=== PATIENT | female | born 1945 | race Caucasian/White ===

== ENCOUNTER 2020-09-08 08:49 | Outpatient (REF) | payer MEDICARE, SELFPAY ==
[2020-09-08 11:32] LABS: Hematocrit 46.7 % (37-47); Hemoglobin 15.5 g/dl (12.0-16.0); Mean Corpuscular HGB Conc 33.2 g/dl (31.0-35.0); Mean Corpuscular Hemoglobin 30.1 pg (27.0-33.0); Mean Corpuscular Volume 90.7 fL (80-98); Mean Platelet Volume 10.4 fL (9.4-12.3); Platelet Count 177 X10*3/uL (160-400); Red Blood Count 5.15 X10*6/uL (4.20-5.50); Red Cell Distribution Width 13.3 % (11.0-16.0); White Blood Count 8.3 X10*3/uL (4.8-10.8)
[2020-09-08 11:36] LABS: Alanine Aminotransferase 24 U/L (0-31); Albumin Level 4.2 g/dL (3.5-5.0); Alkaline Phosphatase 54 U/L (39-117); Anion Gap 15 (12-20); Aspartate Amino Transferase 25 U/L (5-31); Bilirubin Total 1.1 mg/dL (0.0-1.0); Blood Urea Nitrogen 18 mg/dL (9-16); Calcium 9.2 mg/dL (8.4-10.2); Carbon Dioxide 29 mmol/L (22-29); Chloride 100 mmol/L (96-108); Cholesterol 187 mg/dL; Estimated Glomerular Filt Rate > 60; Glucose Fasting 127 mg/dL (60-99); HDL Cholesterol 56 mg/dL; LDL Cholesterol Calculated 111 mg/dl; Potassium 3.6 mmol/l (3.3-5.1); Sodium 140 mmol/L (135-145); Total Protein 7.3 g/dL (6.5-8.0); Triglycerides 102 mg/dL
[2020-09-08 11:52] LABS: Estimated Average Glucose 128 mg/dL; Hemoglobin A1c % 6.1 %
[2020-09-08 11:58] LABS: Thyroid Stimulating Hormone 2.68 uIU/mL (0.32-4.0)
[2020-09-08 12:42] LABS: Creatinine Urine 108.23 mg/dL; Microalbum/Creatinine Ratio Ur 19.4 ug/mg cr
== END 2020-09-08 08:50 | disposition home or self-care (01) ==
LOC: HO.HMGCLDS 08:49
PROVIDERS: PCP Internal Medicine; Visit Provider Internal Medicine
DX: J44.9 Chronic obstructive pulmonary disease, unspecified (principal); I10 Essential (primary) hypertension; E11.9 Type 2 diabetes mellitus without complications; I51.7 Cardiomegaly; E66.9 Obesity, unspecified
CPT/HCPCS: 36415; 80053; 80061; 82043; 83036; 84443; 85027

== ENCOUNTER 2022-02-24 08:34 | Inpatient (IN) | payer MEDICARE, SELFPAY ==
[2022-02-24] VITALS (10 sets, daily range): BP systolic 85–101; BP diastolic 30–52; PULSE 67–92; RESP 16–24; TEMP 36.8–37.3; O2SAT 92–96; BMI 36.9
--- NOTE | ~2022-02-24 | CT_ITS ---
EXAMINATION: CT ABDOMEN AND PELVIS WITHOUT CONTRAST CLINICAL INFORMATION: Acute kidney injury COMPARISON: Ultrasound abdomen 12/08/2015 TECHNIQUE: Multidetector volumetric imaging was performed from the superior aspect of the liver through the pubic symphysis. Sagittal and coronal reformatted images were obtained on the technologist's workstation. This CT examination was performed using dose optimization techniques as appropriate, variously including the following: *Automated exposure control *Adjustment of mA and/or kV according to patient size (this includes techniques or standardized protocols for targeted exams where dose is matched to indication/reason for exam; i.e. extremities or head) *Use of iterative reconstruction technique DLP: 1242 mGy-cm FINDINGS: LUNG BASES: Focus of groundglass and airspace opacity in the left lower lobe, could be related to infectious or inflammatory etiologies. LIVER, GALLBLADDER, AND BILIARY TREE: Hepatomegaly, right lobe spanning 20 cm craniocaudal. No focal lesion seen. No intrahepatic biliary duct dilatation. Status postcholecystectomy. The CBD caliber is within normal limits, status postcholecystectomy. PANCREAS: Unremarkable. No acute inflammatory changes seen. SPLEEN: Enlarged measuring 14.9 cm AP. ADRENAL GLANDS: Unremarkable. KIDNEYS AND URETERS: Mild bilateral perinephric stranding. Punctate calcification in the left renal upper pole calyceal region, could represent a small calculus. No ureteral calculi. No hydronephrosis. No suspicious lesions identified in this noncontrast study. BLADDER: Underdistended without gross abnormality. GASTROINTESTINAL TRACT: Scattered colonic diverticuli. No evidence of diverticulitis. No colonic wall thickening or pericolonic inflammatory changes. Stomach and small bowel are nondistended. The appendix is not visualized. ABDOMINAL WALL: No significant hernia is appreciated. LYMPH NODES: No adenopathy is identified in the abdomen or pelvis. VASCULAR: Normal caliber aorta with atherosclerotic calcification. PELVIC VISCERA: Within normal limits for CT. OSSEOUS STRUCTURES: Multilevel thoracolumbar spondylosis. No acute osseous abnormality seen. CT/CT abdomen pelvis wo con IMPRESSION: 1. Focus of groundglass airspace opacity in the left lower lobe. This could reflect infectious/ inflammatory process. 2. Hepatomegaly. No focal liver lesion seen. Splenomegaly. 3. Status postcholecystectomy. 4. Mild bilateral perinephric stranding. Punctate nonobstructing calculus in the left renal upper pole calyx. No hydronephrosis. 5. Additional findings and details as above.
--- NOTE | ~2022-02-24 | XR_ITS ---
EXAMINATION: XR CHEST CLINICAL INFORMATION: Cough COMPARISON: 06/21/2020 TECHNIQUE: 2 views of the chest were obtained. FINDINGS: Mild patchy interstitial prominence noted definitely improved from the prior exam. Heart and pulmonary vessels are normal. No pleural effusion. XR/XR chest 2V IMPRESSION: Apparent chronic change with no active disease.
--- NOTE | ~2022-02-24 | NM_ITS ---
EXAMINATION: NM LUNG IMAGE PERFUSION CLINICAL INFORMATION: History of COPD, ALKA, pneumonia and LVH. COMPARISON: None TECHNIQUE: Following intravenous administration of 2.8 mCi of 90 9M technetium and a 8, imaging of both lungs were obtained in multiple projections. Ventilation study was not performed. FINDINGS: On perfusion imaging there is normal flow seen to all segments of the lungs without any subsegmental or segmental defect. Ventilation study was not performed NM/SC pul perfusion IMPRESSION: Normal perfusion seen to all segments of both lungs. No PE suspected.
[2022-02-24 10:00] LABS: Hemoglobin 14.7 g/dl (12.0-16.0); Mean Corpuscular HGB Conc 33.4 g/dl (31.0-35.0); Mean Corpuscular Hemoglobin 29.7 pg (27.0-33.0); Mean Corpuscular Volume 88.9 fL (80.0-98.0); Mean Platelet Volume 9.5 fL (9.4-12.3); Platelet Count 114 X10*3/uL (160-400); Red Blood Count 4.95 X10*6/uL (4.20-5.50); Red Cell Distribution Width 12.8 % (11.0-16.0); White Blood Count 7.1 X10*3/uL (4.8-10.8)
[2022-02-24 10:03] LABS: Alanine Aminotransferase 14 U/L (0-31); Albumin Level 3.3 g/dL (3.5-5.0); Alkaline Phosphatase 45 U/L (39-117); Anion Gap 14 (12-20); Aspartate Amino Transferase 15 U/L (5-31); Blood Urea Nitrogen 22 mg/dL (9-16); Calcium 8.6 mg/dL (8.4-10.2); Carbon Dioxide 24 mmol/L (22-29); Chloride 97 mmol/L (96-108); Creatinine Clr Calc Pharmacy 36.1; Estimated Glomerular Filt Rate 30; Glucose Random 161 mg/dL (60-115); Sodium 131 mmol/L (135-145); Total Protein 6.3 g/dL (6.5-8.0)
[2022-02-24 10:07] LABS: Lactic Acid 2.9 mmol/L (0.5-2.0)
[2022-02-24] MEDS: 0.9 % Sodium Chloride 1,000 ML 999 ML IVCONT ×3 (10:11→11:44)
[2022-02-24 10:14] LABS: IDNOW Serial# 9DD0AD1C; Influenza A Negative (Negative); Influenza B2 Negative (Negative)
--- NOTE | 2022-02-24 10:14 | ED.URI ---
HPI - URI/Sore Throat General Chief Complaint: General Medical Stated Complaint: chill, weakness Time Seen by Provider: 02/24/22 09:43 Source: patient and family (Daughter at bedside) Mode of arrival: ambulatory Limitations: no limitations History of Present Illness HPI Narrative: 76-year-old female with a past medical history of type 2 diabetes, HTN, aortic stenosis, LVH, COPD, osteoarthritis of the knees and obesity who reports she smokes 1-2 packs of cigarettes daily for many years presenting to the ED with complaints of chills, fatigue, malaise, productive cough with wheezing use her albuterol inhaler with little to no symptomatic relief. Reports that she was recently seen at the urgent care on 02/16/2022 and diagnosed with pneumonia sent home with [facility] reports that she was taking as prescribed although she might have missed 1 or 2 tablets. She reports she was feeling better for a few days while taking the antibiotics up until 2-3 days ago were her symptoms worsened. She reports she has not been taking her metformin as well due to she has not been feeling well. She reports she is vaccinated to COVID. She reports that she has not had any fevers she has been checking and was around 98.6 temporally. She denies recent travel or sick contacts that she is aware of. She denies any dizziness, headaches, changes in vision, neck pain/stiffness, trouble swallowing or breathing, chest pain or shortness of breath, dyspnea on exertion, orthopnea, palpitations, paresthesias, nausea/vomiting/diarrhea constipation, black or bloody stools, dysuria, hematuria, abnormal vaginal discharge, lower extremity edema or calf tenderness or any other symptoms complaints or concerns at this time. MD elicited complaint: cough Pertinent past history: COPD and other Onset (ago): day(s) (Was feeling better although worse in the past 2-3 days) Consistency: constant and progressively worsening Severity: moderate Able to tolerate fluids by mouth: Yes Exacerbating factors: nothing Relieving factors: nothing Associated symptoms: chills, myalgias and cough Treatments prior to arrival: none Related Data Previous Rx's Medication Instructions Recorded blood-glucose meter #1 ea 09/07/20 tiotropium bromide 2.5 2 puff INHALATION BEDTIME #4 g 09/07/20 mcg/actuation mist for inhalation (Spiriva Respimat) varenicline 0.5 mg (11)-1 mg (42) See Rx Instructions PO PER PKG DIR 09/07/20 tablets in a dose pack (Chantix #53 ea Starting Month Box) varenicline 1 mg tablet (Chantix 1 mg PO BID #56 tab 09/07/20 Continuing Month Box) nicotine 14 mg/24 hr daily 1 patch TRANSDERMAL DAILY #28 ea 10/05/20 transdermal patch blood sugar diagnostic (FreeStyle #100 ea 11/03/20 Lite Strips) blood-glucose meter (FreeStyle #1 ea 11/04/20 Lite Meter) olmesartan 20 mg tablet 20 mg PO DAILY #90 tab 12/06/20 albuterol sulfate 90 mcg/actuation 2 puff INHALATION QID PRN #18 g 08/13/21 aerosol inhaler (ProAir HFA) metformin 500 mg tablet 500 mg PO BID #180 tab 11/05/21 Allergies Allergy/AdvReac Type Severity Reaction Status Date / Time No Known Allergies Allergy Verified 02/24/22 08:45 [No Known Allergies*] Review of Systems Review of Systems: Constitutional : + chills/fatigue/malaise, No Weight loss, No Fever, No Night Sweats ENT/Mouth : No Hearing loss, No Ear Pain, No Nasal Congestion, No Sinus Pain, No Hoarseness, No sore throat, No Rhinorrhea, No Swallowing Difficulty Eyes: No Eye Pain, No Swelling, No Redness, No Foreign Body, No Discharge, No Vision Changes Cardiovascular : No Chest Pain, No SOB, No Dyspnea on Exertion, No Orthopnea, No Edema, No Palpitations Respiratory : + Cough, + Sputum, + Wheezing, No Smoke Exposure, No Dyspnea Gastrointestinal : No Nausea, No Vomiting, No Diarrhea, No Constipation, No abdominal Pain, No Hematochezia, No Melena Genitourinary : no irregular bleeding, No Dysuria, No Urinary Frequency, No Hematuria, No Urinary Incontinence, No Urgency, No Flank Pain, No Urinary Flow Changes, No Hesitancy Musculoskeletal : No joint pain, + Myalgias, No Joint Swelling Skin : No Skin Lesions, No rash Neuro : No Weakness, No Numbness, No Paresthesias, No Loss of Consciousness, No Dizziness, No Headache Psych : No Anxiety/Panic, No Depression, No SI/HI/AH/VH, No Social Issues, Heme/Lymph: No Bruising, No Bleeding,No Lymphadenopathy Endocrine : No Polyuria, No Polydipsia, No Temperature Intolerance Yes all other systems are reviewed and are negative COUNTS INCLUDE 234 BEDS AT THE [facility] Past Medical History Attestation statement: The following information was validated with the patient. Medical History Aortic stenosis Colonoscopy refused COPD (chronic obstructive pulmonary disease) Hypertension LVH (left ventricular hypertrophy) Mammogram declined OA (osteoarthritis) of knee Obesity Osteoarthritis of knees, bilateral Pneumonia Tobacco dependence Type 2 diabetes mellitus Surgical History Hx of cholecystectomy Family History Family History Father No problems noted. Mother No problems noted. Maternal Grandmother No problems noted. Maternal Grandfather No problems noted. Paternal Grandfather No problems noted. Paternal Grandmother Type 2 diabetes mellitus Social History Social History Patient Tobacco Use Status: Current everyday Tobacco user Smoked in Last 30 Days: Yes Use of substances other than those prescribed or required for medical reasons: No Advance Directives: No Advance Directives Information Provided: No Physical Exam Vital Signs: Vital Signs: Last Vital Signs Temp 98.2 F 02/24/22 10:32 Pulse 72 02/24/22 16:52 Resp 20 02/24/22 16:52 BP 101/50 L 02/24/22 16:52 Pulse Ox 96 02/24/22 16:52 BMI result Body Mass Index 36.9 vital signs have been reviewed as normal and appeared to be correct. Blood pressure 85/30. Heart rate 92. Respiration rate 22. Temperature 99.2. Oxygen saturation normal. Appearance: Alert. Oriented X3. No acute distress. Head: Normal external exam. Normocephalic. Atraumatic. Eyes: PERRLA. EOMI. Conjunctiva and sclera normal. Eyelids normal. ENT: EAC normal. TM's Normal. Patient noted to have some mild thrush in the oropharynx. The rest of the soft and hard palate are within normal limits. The rest of the pharynx is normal. Uvula midline. Moist mucous membranes. No lesions/ulcerations or masses noted on the tongue. Normal voice. No trismus noted. No drooling noted. No muffled voice noted. Neck: Normal inspection. Neck supple. FROM. No adenopathy. Thyroid Normal. No tracheal deviation noted. No crepitus is noted. No meningeal signs. No neck mass noted. No signs of trauma noted. CVS: Normal heart rate and rhythm. Heart sound normal. Pulses normal throughout. No murmurs/rales/gallops. Respiratory: No respiratory distress. Painless inspiration. Breath sounds normal. No wheezes/rales/rhonchi noted. Chest nontender. No crepitus is noted. No accessory muscle usage noted or decreased air movement noted. No signs of trauma. Abdomen: Soft and nontender. Bowel sounds normal in all 4 quadrants. No distention noted. No organomegaly noted. No visible injury noted. Back: No CVA tenderness. Full range of motion noted. Nontender. No signs of trauma. Patient neuro intact bilaterally and distally on all 4 extremities. Patient's reflexes intact bilaterally and distally on all 4 extremities. No rashes/lesion/induration/fluctuance or signs of infection noted. Skin: Skin warm and dry. Normal skin color. Normal skin turgor. No rashes/lesions/lacerations noted. Extremities: No lower extremity edema. No calf tenderness is noted. Extremities exhibit normal range of motion and nontender. Neuro: Oriented X 3. No motor deficit. No sensory deficit. Reflexes normal. Normal steady gait. No focal neuro deficits noted. CN's II-XII intact bilaterally? Vascular: + radial pulses/+ 2 distal pedal pulses/+2 dorsalis pedis b/l. Normal cap refill. No cyanosis noted to upper extremity nails and lower extremity toes nails. Course Course Course Narrative: 9:50am - 76-year-old female with a past medical history of type 2 diabetes, HTN, aortic stenosis, LVH, COPD, osteoarthritis of the knees and obesity who reports she smokes 1-2 packs of cigarettes daily for many years presenting to the ED with complaints of chills, fatigue, malaise, productive cough with wheezing use her albuterol inhaler with little to no symptomatic relief. Reports that she was recently seen at the urgent care on 02/16/2022 and diagnosed with pneumonia sent home with [facility] reports that she was taking as prescribed although she might have missed 1 or 2 tablets. She reports she was feeling better for a few days while taking the antibiotics up until 2-3 days ago were her symptoms worsened. She reports she has not been taking her metformin as well due to she has not been feeling well. She reports she is vaccinated to COVID. Patient had labs, blood cultures and lactic acid and a L of IV fluids running when I went into the room. Plan: Therefore at this time will obtain a chest x-ray, provide 1 g of IV Rocephin along with 975 mg of Tylenol and oral nystatin for the patient's oral thrush along with 125 mg of Solu-Medrol as patient does have some decreased breath sounds although no wheezing noted at this time and a breathing treatment of albuterol and re-evaluate. Reevaluation(s) Reevaluation #1: - labs reviewed patient platelet count 114. Sodium 131. BUN/creatinine 22/1.66. Random glucose 161. Hemoglobin A1c 2.9. Total protein 6.3. Albumin 3.3. Otherwise all other labs are within normal limits. - patient negative for influenza and COVID. - chest x-ray negative for any acute processes. - lactic acid 2.9 although this is most likely related to the patient's ALKA not sepsis. - at this time I ordered a total of 2 L of fluid due to the patient's ALKA. Will recheck the patient's BMP if her ALKA and hypo natremia has improved patient will be discharged with symptomatic treatment. Patient understands agrees with this plan. I did offer case management although patient reports that she feels that she can take care of herself at home and does not want to go short-term rehab. Time: 10:00 Reevaluation #2: - repeat chemistry revealed a sodium of 132. And BUN and creatinine is now worsened at 23/1.75. Therefore going to discuss this case with Nephrology. Still awaiting a UA therefore will bladder scan at this time. Will also obtain a CT scan abdomen pelvis without IV contrast to evaluate for possible obstructive process. Patient understands agrees with this plan. Time: 14:35 Reevaluation #3: - D-dimer at 344 and was ordered earlier the patient's blood pressure was low, to kidney a and the patient's cough; although she denied any chest pain or shortness of breath. She does not have any lower extremity edema or calf tenderness - Although due to D-dimer being elevated will order a V/Q scan due to we are currently on a IV contrast shortage - CT scan abdomen pelvis without IV contrast revealed ground-glass airspace opacities in the left lower lobe which could represent infectious versus inflammatory. Hepatomegaly. Mild bilateral perinephric stranding with nonobstructive calculus in the left renal upper pole otherwise no hydronephrosis or any other acute processes - If V/Q scan negative patient can be admitted for ALKA/COPD with acute exacerbation/pneumonia with hyponatremia and hypotension and candidiasis of mouth. - Sign-out to SHIRIN James pending V/Q scan. Time: 18:21 MDM - URI/Sore Throat Medical Records Attestation: I reviewed the patient's medical records. Lab Data Attestation: I reviewed the patient's lab results. Result diagrams: 02/24/22 09:36 02/24/22 13:39 Labs: Lab Results 02/24/22 02/24/22 02/24/22 Range/Units 09:36 09:36 09:36 WBC 7.1 (4.8-10.8) X10*3/uL RBC 4.95 (4.20-5.50) X10*6/uL Hgb 14.7 (12.0-16.0) g/dl Hct 44.0 (37.0-47.0) % MCV 88.9 (80.0-98.0) fL MCH 29.7 (27.0-33.0) pg MCHC 33.4 (31.0-35.0) g/dl RDW 12.8 (11.0-16.0) % Plt Count 114 L (160-400) X10*3/uL MPV 9.5 (9.4-12.3) fL Immature Gran % (Auto) Cancelled Neut % (Auto) Cancelled Lymph % (Auto) Cancelled [place] % (Auto) Cancelled Eos % (Auto) Cancelled Baso % (Auto) Cancelled Lymph # (Auto) Cancelled [place] # (Auto) Cancelled Eos # (Auto) Cancelled Baso # (Auto) Cancelled Abs Immat Gran (auto) Cancelled Absolute Neuts (auto) Cancelled Absolute Nucleated RBC 0.000 (0.0-0.012) X10*3/uL Nucleated RBC % (auto) 0.0 (0.0-0.2) /100WBC Neutrophils % (Manual) 66 (45-73) % Band Neutrophils % 15 H (3-5) % Lymphocytes % (Manual) 8 L (20-40) % Monocytes % (Manual) 5 (2-11) % Eosinophils % (Manual) 5 H (0-4) % Metamyelocytes % 1 % Abs Neuts (Manual) 5.8 (2.0-8.3) X10*3/uL Lymphocytes # (Manual) 0.6 L (1.2-4.9) X10*3/uL Monocytes # (Manual) 0.4 (0.1-1.2) X10*3/uL Eosinophils # (Manual) 0.4 (0.0-0.4) X10*3/uL Metamyelocytes # 0.1 X10*3/uL Toxic Vacuolation PRESENT Platelet Estimate DECREASED (NORMAL) Plt Morphology Comment NORMAL RBC Morphology NORMAL PT (9.9-13.0) SEC INR (0.9-1.1) D-Dimer High Sensitivty NG/ML Sodium 131 L (135-145) mmol/L Potassium 4.0 (3.3-5.1) mmol/L Chloride 97 (96-108) mmol/L Carbon Dioxide 24 (22-29) mmol/L Anion Gap 14 (12-20) BUN 22 H (9-16) mg/dL Creatinine 1.66 H (0.5-1.4) mg/dL Estim Creat Clear Calc 36.1 Estimated GFR 30 Random Glucose 161 H (60-115) mg/dL Lactic Acid 2.9 H* (0.5-2.0) mmol/L Lactic Acid F/U @ 2Hr (0.5-2.0) mmol/L Calcium 8.6 D (8.4-10.2) mg/dL Total Bilirubin 1.0 (0.0-1.0) mg/dL Direct Bilirubin 0.5 (0.0-0.5) mg/dL AST 15 (5-31) U/L ALT 14 (0-31) U/L Alkaline Phosphatase 45 (39-117) U/L Troponin I High Sens (<3.5-17.0) ng/L B-Natriuretic Peptide (<100) pg/mL Total Protein 6.3 L (6.5-8.0) g/dL Albumin 3.3 L D (3.5-5.0) g/dL Urine Color Urine Appearance Urine pH (5.0-8.0) Ur Specific [place] (1.005-1.025) Urine Protein (NEG-TRACE) MG/DL Urine Glucose (UA) (NEG) MG/DL Urine Ketones (NEG) MG/DL Urine Blood (NEG) Urine Nitrite (NEG) Ur Leukocyte Esterase (NEG) COVID-19 (SHRUTI) (Negative) COVID-19 Clin Com Influenza Type A (GEOVANNA) (Negative) Influenza Type B (GEOVANNA) (Negative) Influenza A & B Note 02/24/22 02/24/22 02/24/22 Range/Units 09:36 09:39 09:39 WBC (4.8-10.8) X10*3/uL RBC (4.20-5.50) X10*6/uL Hgb (12.0-16.0) g/dl Hct (37.0-47.0) % MCV (80.0-98.0) fL MCH (27.0-33.0) pg MCHC (31.0-35.0) g/dl RDW (11.0-16.0) % Plt Count (160-400) X10*3/uL MPV (9.4-12.3) fL Immature Gran % (Auto) Neut % (Auto) Lymph % (Auto) [place] % (Auto) Eos % (Auto) Baso % (Auto) Lymph # (Auto) [place] # (Auto) Eos # (Auto) Baso # (Auto) Abs Immat Gran (auto) Absolute Neuts (auto) Absolute Nucleated RBC (0.0-0.012) X10*3/uL Nucleated RBC % (auto) (0.0-0.2) /100WBC Neutrophils % (Manual) (45-73) % Band Neutrophils % (3-5) % Lymphocytes % (Manual) (20-40) % Monocytes % (Manual) (2-11) % Eosinophils % (Manual) (0-4) % Metamyelocytes % % Abs Neuts (Manual) (2.0-8.3) X10*3/uL Lymphocytes # (Manual) (1.2-4.9) X10*3/uL Monocytes # (Manual) (0.1-1.2) X10*3/uL Eosinophils # (Manual) (0.0-0.4) X10*3/uL Metamyelocytes # X10*3/uL Toxic Vacuolation Platelet Estimate (NORMAL) Plt Morphology Comment RBC Morphology PT (9.9-13.0) SEC INR (0.9-1.1) D-Dimer High Sensitivty NG/ML Sodium (135-145) mmol/L Potassium (3.3-5.1) mmol/L Chloride (96-108) mmol/L Carbon Dioxide (22-29) mmol/L Anion Gap (12-20) BUN (9-16) mg/dL Creatinine (0.5-1.4) mg/dL Estim Creat Clear Calc Estimated GFR Random Glucose (60-115) mg/dL Lactic Acid (0.5-2.0) mmol/L Lactic Acid F/U @ 2Hr (0.5-2.0) mmol/L Calcium (8.4-10.2) mg/dL Total Bilirubin (0.0-1.0) mg/dL Direct Bilirubin (0.0-0.5) mg/dL AST (5-31) U/L ALT (0-31) U/L Alkaline Phosphatase (39-117) U/L Troponin I High Sens 8.6 (<3.5-17.0) ng/L B-Natriuretic Peptide 81 (<100) pg/mL Total Protein (6.5-8.0) g/dL Albumin (3.5-5.0) g/dL Urine Color Urine Appearance Urine pH (5.0-8.0) Ur Specific [place] (1.005-1.025) Urine Protein (NEG-TRACE) MG/DL Urine Glucose (UA) (NEG) MG/DL Urine Ketones (NEG) MG/DL Urine Blood (NEG) Urine Nitrite (NEG) Ur Leukocyte Esterase (NEG) COVID-19 (SHRUTI) Negative (Negative) COVID-19 Clin Com See Note Influenza Type A (GEOVANNA) Negative (Negative) Influenza Type B (GEOVANNA) Negative (Negative) Influenza A & B Note See Note 02/24/22 02/24/22 02/24/22 Range/Units 12:15 13:39 14:41 WBC (4.8-10.8) X10*3/uL RBC (4.20-5.50) X10*6/uL Hgb (12.0-16.0) g/dl Hct (37.0-47.0) % MCV (80.0-98.0) fL MCH (27.0-33.0) pg MCHC (31.0-35.0) g/dl RDW (11.0-16.0) % Plt Count (160-400) X10*3/uL MPV (9.4-12.3) fL Immature Gran % (Auto) Neut % (Auto) Lymph % (Auto) [place] % (Auto) Eos % (Auto) Baso % (Auto) Lymph # (Auto) [place] # (Auto) Eos # (Auto) Baso # (Auto) Abs Immat Gran (auto) Absolute Neuts (auto) Absolute Nucleated RBC (0.0-0.012) X10*3/uL Nucleated RBC % (auto) (0.0-0.2) /100WBC Neutrophils % (Manual) (45-73) % Band Neutrophils % (3-5) % Lymphocytes % (Manual) (20-40) % Monocytes % (Manual) (2-11) % Eosinophils % (Manual) (0-4) % Metamyelocytes % % Abs Neuts (Manual) (2.0-8.3) X10*3/uL Lymphocytes # (Manual) (1.2-4.9) X10*3/uL Monocytes # (Manual) (0.1-1.2) X10*3/uL Eosinophils # (Manual) (0.0-0.4) X10*3/uL Metamyelocytes # X10*3/uL Toxic Vacuolation Platelet Estimate (NORMAL) Plt Morphology Comment RBC Morphology PT (9.9-13.0) SEC INR (0.9-1.1) D-Dimer High Sensitivty NG/ML Sodium 132 L (135-145) mmol/L Potassium 3.8 (3.3-5.1) mmol/L Chloride 103 (96-108) mmol/L Carbon Dioxide 19 L (22-29) mmol/L Anion Gap 14 (12-20) BUN 23 H (9-16) mg/dL Creatinine 1.75 H (0.5-1.4) mg/dL Estim Creat Clear Calc 34.3 Estimated GFR 28 Random Glucose 220 H (60-115) mg/dL Lactic Acid (0.5-2.0) mmol/L Lactic Acid F/U @ 2Hr 1.2 (0.5-2.0) mmol/L Calcium 7.7 L D (8.4-10.2) mg/dL Total Bilirubin (0.0-1.0) mg/dL Direct Bilirubin (0.0-0.5) mg/dL AST (5-31) U/L ALT (0-31) U/L Alkaline Phosphatase (39-117) U/L Troponin I High Sens (<3.5-17.0) ng/L B-Natriuretic Peptide (<100) pg/mL Total Protein (6.5-8.0) g/dL Albumin (3.5-5.0) g/dL Urine Color YELLOW Urine Appearance HAZY Urine pH 5.5 (5.0-8.0) Ur Specific [place] 1.025 (1.005-1.025) Urine Protein TRACE (NEG-TRACE) MG/DL Urine Glucose (UA) NEG (NEG) MG/DL Urine Ketones 5 (NEG) MG/DL Urine Blood NEG (NEG) Urine Nitrite NEG (NEG) Ur Leukocyte Esterase NEG (NEG) COVID-19 (SHRUTI) (Negative) COVID-19 Clin Com Influenza Type A (GEOVANNA) (Negative) Influenza Type B (GEOVANNA) (Negative) Influenza A & B Note 02/24/22 02/24/22 Range/Units 16:44 16:44 WBC (4.8-10.8) X10*3/uL RBC (4.20-5.50) X10*6/uL Hgb (12.0-16.0) g/dl Hct (37.0-47.0) % MCV (80.0-98.0) fL MCH (27.0-33.0) pg MCHC (31.0-35.0) g/dl RDW (11.0-16.0) % Plt Count (160-400) X10*3/uL MPV (9.4-12.3) fL Immature Gran % (Auto) Neut % (Auto) Lymph % (Auto) [place] % (Auto) Eos % (Auto) Baso % (Auto) Lymph # (Auto) [place] # (Auto) Eos # (Auto) Baso # (Auto) Abs Immat Gran (auto) Absolute Neuts (auto) Absolute Nucleated RBC (0.0-0.012) X10*3/uL Nucleated RBC % (auto) (0.0-0.2) /100WBC Neutrophils % (Manual) (45-73) % Band Neutrophils % (3-5) % Lymphocytes % (Manual) (20-40) % Monocytes % (Manual) (2-11) % Eosinophils % (Manual) (0-4) % Metamyelocytes % % Abs Neuts (Manual) (2.0-8.3) X10*3/uL Lymphocytes # (Manual) (1.2-4.9) X10*3/uL Monocytes # (Manual) (0.1-1.2) X10*3/uL Eosinophils # (Manual) (0.0-0.4) X10*3/uL Metamyelocytes # X10*3/uL Toxic Vacuolation Platelet Estimate (NORMAL) Plt Morphology Comment RBC Morphology PT 14.3 H (9.9-13.0) SEC INR 1.3 H (0.9-1.1) D-Dimer High Sensitivty 344 NG/ML Sodium (135-145) mmol/L Potassium (3.3-5.1) mmol/L Chloride (96-108) mmol/L Carbon Dioxide (22-29) mmol/L Anion Gap (12-20) BUN (9-16) mg/dL Creatinine (0.5-1.4) mg/dL Estim Creat Clear Calc Estimated GFR Random Glucose (60-115) mg/dL Lactic Acid (0.5-2.0) mmol/L Lactic Acid F/U @ 2Hr (0.5-2.0) mmol/L Calcium (8.4-10.2) mg/dL Total Bilirubin (0.0-1.0) mg/dL Direct Bilirubin (0.0-0.5) mg/dL AST (5-31) U/L ALT (0-31) U/L Alkaline Phosphatase (39-117) U/L Troponin I High Sens 4.5 (<3.5-17.0) ng/L B-Natriuretic Peptide (<100) pg/mL Total Protein (6.5-8.0) g/dL Albumin (3.5-5.0) g/dL Urine Color Urine Appearance Urine pH (5.0-8.0) Ur Specific [place] (1.005-1.025) Urine Protein (NEG-TRACE) MG/DL Urine Glucose (UA) (NEG) MG/DL Urine Ketones (NEG) MG/DL Urine Blood (NEG) Urine Nitrite (NEG) Ur Leukocyte Esterase (NEG) COVID-19 (SHRUTI) (Negative) COVID-19 Clin Com Influenza Type A (GEOVANNA) (Negative) Influenza Type B (GEOVANNA) (Negative) Influenza A & B Note Imaging Data Chest x-ray: Attestation: I personally reviewed and interpreted this imaging study as follows: Radiologist's impression: FINDINGS: Mild patchy interstitial prominence noted definitely improved from the prior exam. Heart and pulmonary vessels are normal. No pleural effusion. XR/XR chest 2V IMPRESSION: Apparent chronic change with no active disease. CT scan abdomen pelvis without IV contrast: Attestation: I personally reviewed and interpreted this imaging study as follows: Radiologist's impression: FINDINGS: LUNG BASES: Focus of groundglass and airspace opacity in the left lower lobe, could be related to infectious or inflammatory etiologies.? LIVER, GALLBLADDER, AND BILIARY TREE: Hepatomegaly, right lobe spanning 20 cm craniocaudal. No focal lesion seen. No intrahepatic biliary duct dilatation. Status postcholecystectomy. The CBD caliber is within normal limits, status postcholecystectomy.? PANCREAS: Unremarkable. No acute inflammatory changes seen.? SPLEEN: Enlarged measuring 14.9 cm AP.? ADRENAL GLANDS: Unremarkable.? KIDNEYS AND URETERS: Mild bilateral perinephric stranding. Punctate calcification in the left renal upper pole calyceal region, could represent a small calculus. No ureteral calculi. No hydronephrosis. No suspicious lesions identified in this noncontrast study. BLADDER: Underdistended without gross abnormality.? GASTROINTESTINAL TRACT: Scattered colonic diverticuli. No evidence of diverticulitis. No colonic wall thickening or pericolonic inflammatory changes. Stomach and small bowel are nondistended. The appendix is not visualized.? ABDOMINAL WALL: No significant hernia is appreciated.? LYMPH NODES: No adenopathy is identified in the abdomen or pelvis. VASCULAR: Normal caliber aorta with atherosclerotic calcification. PELVIC VISCERA: Within normal limits for CT.? OSSEOUS STRUCTURES: Multilevel thoracolumbar spondylosis. No acute osseous abnormality seen.? CT/CT abdomen pelvis wo con IMPRESSION: 1. Focus of groundglass airspace opacity in the left lower lobe. This could reflect infectious/ inflammatory process. ? 2. Hepatomegaly. No focal liver lesion seen. Splenomegaly. ? 3. Status postcholecystectomy. ? 4. Mild bilateral perinephric stranding. Punctate nonobstructing calculus in the left renal upper pole calyx. No hydronephrosis. ? ?5. Additional findings and details as above.? ECG Data Attestation: I personally reviewed and interpreted this ECG as follows: ECG interpretation date: 02/24/22 ECG interpretation time: 17:39 Interpretation: Normal sinus rhythm with a ventricular rate of 66 with low voltage is QRS otherwise no acute ischemic change are noted. Similar compared to prior EKG 06/21/2020 Critical Care Time Critical Care Time Critical Care Time: Yes Total Critical Care Time: 60 Attestation: I personally attest to this time spent taking care of the patient Discharge Plan Discharge Clinical Impression: ALKA (acute kidney injury), COPD with acute exacerbation, Acute hyponatremia, Hypotension, Candidiasis of mouth, Pneumonia Patient Disposition: Still a Patient Prescriptions: No Action (DME) FreeStyle Lite Strips Strip See Rx Instructions .ROUTE .MEDSUPPLY Qty: 100 4RF Rx Instructions: once a day (DME) blood-glucose meter [FreeStyle Lite Meter] Kit See Rx Instructions .ROUTE .MEDSUPPLY Qty: 1 0RF Rx Instructions: As directed olmesartan 20 mg tablet 20 mg PO DAILY Qty: 90 3RF albuterol sulfate [ProAir HFA] 90 mcg/actuation HFA aerosol inhaler 2 puff inhalation QID PRN (Reason: shortness of breath or wheezing) Qty: 18 1RF metformin 500 mg tablet 500 mg PO BID Qty: 180 0RF Chantix Starting Month Box 0.5 mg (11)- 1 mg (42) tablets,dose pack See Rx Instructions PO PER PKG DIR Qty: 53 0RF Rx Instructions: PO PER PKG DIR Chantix Continuing Month Box 1 mg tablet 1 mg PO BID Qty: 56 1RF (DME) blood-glucose meter Kit See Rx Instructions .ROUTE .MEDSUPPLY Qty: 1 0RF Rx Instructions: As directed Spiriva Respimat 2.5 mcg/actuation mist 2 puff inhalation BEDTIME Qty: 4 5RF nicotine 14 mg/24 hr patch 24 hour 1 patch transdermal DAILY Qty: 28 4RF
[2022-02-24 10:16] LABS: Band Neutrophils Percent 15 % (3-5); Eosinophils Absolute Manual 0.4 X10*3/uL (0.0-0.4); Eosinophils Percent Manual 5 % (0-4); Lymphocytes Absolute Manual 0.6 X10*3/uL (1.2-4.9); Lymphocytes Percent Manual 8 % (20-40); Metamyelocytes Absolute 0.1 X10*3/uL; Metamyelocytes Percent 1 %; Monocytes Absolute Manual 0.4 X10*3/uL (0.1-1.2); Monocytes Percent Manual 5 % (2-11); Neutrophils Absolute Manual 5.8 X10*3/uL (2.0-8.3); Neutrophils Percent Manual 66 % (45-73)
[2022-02-24 10:17] LABS: Platelet Estimate DECREASED (NORMAL); Platelet Morphology Comment NORMAL; RBC Morphology NORMAL; Toxic Vacuolation PRESENT
[2022-02-24 10:31] LABS: COVID-19 Test Negative (Negative); IDNOW Serial# 55D5AD1C
[2022-02-24] MEDS: cefTRIAXone sodium 1 GM in 0.9 % Sodium Chloride 50 ML IV (10:34)
[2022-02-24] MEDS: Acetaminophen 325 MG TABLET 975 MG PO (10:34)
[2022-02-24] MEDS: Nystatin Oral Susp 500,000 UNIT/5 ML ORAL.SUSP 200000 UNIT BUCCAL (10:40)
[2022-02-24] MEDS: methylPREDNISolone Sod Succ 125 MG/2 ML VIAL IVPUSH (10:40)
[2022-02-24 10:42] LABS: B Type Natriuretic Peptide 81 pg/mL (<100)
[2022-02-24] MEDS: Albuterol Sulfate (0.083%) 2.5 MG/3 ML VIAL.NEB 5 MG INHALE (10:45)
[2022-02-24 11:44] LABS: Reflex Lactate? Lactic Acid Added
[2022-02-24 12:45] LABS: ~Lactic Acid-LAB USE ONLY 1.2 mmol/L (0.5-2.0)
[2022-02-24 14:22] LABS: Anion Gap 14 (12-20); Blood Urea Nitrogen 23 mg/dL (9-16); Carbon Dioxide 19 mmol/L (22-29); Chloride 103 mmol/L (96-108); Creatinine Clr Calc Pharmacy 34.3; Estimated Glomerular Filt Rate 28; Glucose Random 220 mg/dL (60-115); Potassium 3.8 mmol/L (3.3-5.1); Sodium 132 mmol/L (135-145)
[2022-02-24 14:33] LABS: Calcium 7.7 mg/dL (8.4-10.2)
[2022-02-24 14:51] LABS: Appearance Urine HAZY; Color Urine YELLOW; Glucose Urine UA NEG (NEG); Leukocyte Esterase Urine NEG (NEG); Nitrite Urine NEG (NEG); PH 5.5 (5.0-8.0); Specific Gravity - Urine 1.025 (1.005-1.025); Urine Blood NEG (NEG); Urine Ketones 5 MG/DL (NEG); Urine Protein TRACE MG/DL (NEG-TRACE)
[2022-02-24 15:34] LABS: Troponin-I High Sensitivity 8.6 ng/L (<3.5-17.0)
[2022-02-24 15:42] LABS: Bilirubin Direct 0.5 mg/dL (0.0-0.5)
[2022-02-24 16:57] LABS: INTERNATIONAL NORM RATIO 1.3 (0.9-1.1); Prothrombin Time 14.3 SEC (9.9-13.0)
[2022-02-24 16:59] LABS: D Dimer High Sensitivity 344 NG/ML
--- NOTE | 2022-02-24 17:05 | ECG_ITS ---
Test Reason : weakness Blood Pressure : / mmHG Vent. Rate : 066 BPM Atrial Rate : 066 BPM P-R Int : 196 ms QRS Dur : 086 ms QT Int : 480 ms P-R-T Axes : 043 -04 020 degrees QTc Int : 503 ms Normal sinus rhythm Low voltage QRS Cannot rule out Inferior infarct , age undetermined Abnormal ECG When compared with ECG of 21-JUN-2020 13:01, No significant change was found Referred By: Anastasia Kuhn Electronically Signed By:Brenton Mosqueda
[2022-02-24 17:25] LABS: Troponin-I High Sensitivity 4.5 ng/L (<3.5-17.0)
--- NOTE | 2022-02-24 19:13 | PM.IMHP ---
History of Present Illness Date of Service: 02/24/22 Chief Complaint: cough 76-year-old female with a past medical history of hypertension hyperlipidemia, diabetes, aortic stenosis, LVH, COPD, obesity, osteoarthritis tobacco dependence; presented to the hospital today with a chief complaint generalized weakness. Patient reports that over the past few days she has been having generalized weakness associated and sputum production. Also reports mild shortness of breath and wheezing. Mentions she tried home inhalers with no significant improvement. Patient mentioned that she was recently diagnosed with pneumonia and was on Levaquin for few days; initially felt better but later she started to feel worse again; Denies any numbness tingling or focal weakness. Denies any recent travel or sick contacts. Mentions that she COVID-19 vaccinated Denies any chest pain or palpitations. Review of all other systems is negative except mentioned above ER course: Per ER team patient noted to have wheezing; given nebulizations and steroids; chest x-ray showed possible left lower lobe pneumonia; given Levaquin; EKG was nonischemic; troponin negative; also noted to have ALKA-given IV fluids but no significant improvement noted; D-dimer was noted to be 344-V/Q scan pending; CT abdomen pelvis showed mild bilateral perinephric stranding but urinalysis negative for infection; admitted for further management [facility] Medical History Aortic stenosis Colonoscopy refused COPD (chronic obstructive pulmonary disease) Hypertension LVH (left ventricular hypertrophy) Mammogram declined OA (osteoarthritis) of knee Obesity Osteoarthritis of knees, bilateral Pneumonia Tobacco dependence Type 2 diabetes mellitus Family History Father No problems noted. Mother No problems noted. Maternal Grandmother No problems noted. Maternal Grandfather No problems noted. Paternal Grandfather No problems noted. Paternal Grandmother Type 2 diabetes mellitus Surgical History Hx of cholecystectomy Social History Patient Tobacco Use Status: Current everyday Tobacco user Smoked in Last 30 Days: Yes Use of substances other than those prescribed or required for medical reasons: No Advance Directives: No Advance Directives Information Provided: No Meds Allergies Allergy/AdvReac Type Severity Reaction Status Date / Time No Known Allergies Allergy Verified 02/24/22 08:45 [No Known Allergies*] Active Medications: Current Medications Acetaminophen (Acetaminophen 325 Mg Tablet) 650 mg PO Q6H PRN PRN Reason: Pain, Mild (Pain Scale 1-3) Albuterol/Ipratropium (Albuterol/Iprat 2.5/0.5mg 3 Ml Ampul.Neb) 3 ml INHALE RQ4H PRN PRN Reason: Shortness of Breath/Wheezing Albuterol/Ipratropium (Albuterol/Iprat 2.5/0.5mg 3 Ml Ampul.Neb) 3 ml INHALE RQ6H WHILE AWAKE [facility] Dextrose (Dextrose 50 % 25 Gm/50 Ml Syringe) 25 gm IVPUSH Q15M PRN; Protocol PRN Reason: per Hypoglycemia Standing Ord. Enoxaparin Sodium (Enoxaparin Sodium 40 Mg/0.4 Ml Syringe) 40 mg SUBCUT Q24H ELIAS Glucose (Glucose Gel 15 Gm Gel..Gram.) 15 gm PO Q15M PRN; Protocol PRN Reason: per Hypoglycemia Standing Ord. Levofloxacin (Levaquin) 750 mg in 150 mls @ 100 mls/hr IV Q24H [facility] Insulin Human Lispro (Insulin Lispro 100 Unit/Ml 3 Ml Vial) 0 unit SUBCUT QIDACHS [facility]; Protocol Pharmacy Consult (Consult Rx Perform Med Rec) 1 each MISCELLANE ONCE STA Stop: 02/24/22 19:09 Senna (Sennosides 8.6 Mg Tablet) 17.2 mg PO BEDTIME PRN PRN Reason: Constipation Sodium Chloride (0.9 % Sodium Chloride Flush 3 Ml Syringe) 3 ml IVFLUSH QSHIFT [facility] Physical Exam Vital Signs and Narrative: Vital Signs: Last Vital Signs Temp 98.2 F 02/24/22 10:32 Pulse 72 02/24/22 16:52 Resp 20 02/24/22 16:52 BP 101/50 L 02/24/22 16:52 Pulse Ox 96 02/24/22 16:52 BMI result Body Mass Index 36.9 Gen: Appears be in no acute distress HEENT: NCAT, Moist mucosa. Pulmonary: Coarse breath sounds CVS: Murmur present Abdomen: BS+, Soft, Nontender Extremities: Warm well perfused Neuro: Alert and awake. Results Labs CBC and Chem 7: 02/24/22 09:36 02/24/22 13:39 Labs: Laboratory Results - last 24 hr 02/24/22 02/24/22 02/24/22 09:36 09:36 09:36 MCV 88.9 MCH 29.7 MCHC 33.4 RDW 12.8 Plt Count 114 L MPV 9.5 Immature Gran % (Auto) Cancelled Neut % (Auto) Cancelled Lymph % (Auto) Cancelled [place] % (Auto) Cancelled Eos % (Auto) Cancelled Baso % (Auto) Cancelled Lymph # (Auto) Cancelled [place] # (Auto) Cancelled Eos # (Auto) Cancelled Baso # (Auto) Cancelled Abs Immat Gran (auto) Cancelled Absolute Neuts (auto) Cancelled Absolute Nucleated RBC 0.000 Nucleated RBC % (auto) 0.0 Neutrophils % (Manual) 66 Band Neutrophils % 15 H Lymphocytes % (Manual) 8 L Monocytes % (Manual) 5 Eosinophils % (Manual) 5 H Metamyelocytes % 1 Abs Neuts (Manual) 5.8 Lymphocytes # (Manual) 0.6 L Monocytes # (Manual) 0.4 Eosinophils # (Manual) 0.4 Metamyelocytes # 0.1 Toxic Vacuolation PRESENT Platelet Estimate DECREASED Plt Morphology Comment NORMAL RBC Morphology NORMAL PT INR D-Dimer High Sensitivty Anion Gap 14 Estim Creat Clear Calc 36.1 Estimated GFR 30 Random Glucose 161 H Lactic Acid 2.9 H* Lactic Acid F/U @ 2Hr Calcium 8.6 D Total Bilirubin 1.0 Direct Bilirubin 0.5 AST 15 ALT 14 Alkaline Phosphatase 45 Troponin I High Sens B-Natriuretic Peptide Total Protein 6.3 L Albumin 3.3 L D Urine Color Urine Appearance Urine pH Ur Specific [place] Urine Protein Urine Glucose (UA) Urine Ketones Urine Blood Urine Nitrite Ur Leukocyte Esterase COVID-19 (SHRUTI) COVID-19 Clin Com Influenza Type A (GEOVANNA) Influenza Type B (GEOVANNA) Influenza A & B Note 02/24/22 02/24/22 02/24/22 09:36 09:39 09:39 MCV MCH MCHC RDW Plt Count MPV Immature Gran % (Auto) Neut % (Auto) Lymph % (Auto) [place] % (Auto) Eos % (Auto) Baso % (Auto) Lymph # (Auto) [place] # (Auto) Eos # (Auto) Baso # (Auto) Abs Immat Gran (auto) Absolute Neuts (auto) Absolute Nucleated RBC Nucleated RBC % (auto) Neutrophils % (Manual) Band Neutrophils % Lymphocytes % (Manual) Monocytes % (Manual) Eosinophils % (Manual) Metamyelocytes % Abs Neuts (Manual) Lymphocytes # (Manual) Monocytes # (Manual) Eosinophils # (Manual) Metamyelocytes # Toxic Vacuolation Platelet Estimate Plt Morphology Comment RBC Morphology PT INR D-Dimer High Sensitivty Anion Gap Estim Creat Clear Calc Estimated GFR Random Glucose Lactic Acid Lactic Acid F/U @ 2Hr Calcium Total Bilirubin Direct Bilirubin AST ALT Alkaline Phosphatase Troponin I High Sens 8.6 B-Natriuretic Peptide 81 Total Protein Albumin Urine Color Urine Appearance Urine pH Ur Specific [place] Urine Protein Urine Glucose (UA) Urine Ketones Urine Blood Urine Nitrite Ur Leukocyte Esterase COVID-19 (SHRUTI) Negative COVID-19 Clin Com See Note Influenza Type A (GEOVANNA) Negative Influenza Type B (GEOVANNA) Negative Influenza A & B Note See Note 02/24/22 02/24/22 02/24/22 12:15 13:39 14:41 MCV MCH MCHC RDW Plt Count MPV Immature Gran % (Auto) Neut % (Auto) Lymph % (Auto) [place] % (Auto) Eos % (Auto) Baso % (Auto) Lymph # (Auto) [place] # (Auto) Eos # (Auto) Baso # (Auto) Abs Immat Gran (auto) Absolute Neuts (auto) Absolute Nucleated RBC Nucleated RBC % (auto) Neutrophils % (Manual) Band Neutrophils % Lymphocytes % (Manual) Monocytes % (Manual) Eosinophils % (Manual) Metamyelocytes % Abs Neuts (Manual) Lymphocytes # (Manual) Monocytes # (Manual) Eosinophils # (Manual) Metamyelocytes # Toxic Vacuolation Platelet Estimate Plt Morphology Comment RBC Morphology PT INR D-Dimer High Sensitivty Anion Gap 14 Estim Creat Clear Calc 34.3 Estimated GFR 28 Random Glucose 220 H Lactic Acid Lactic Acid F/U @ 2Hr 1.2 Calcium 7.7 L D Total Bilirubin Direct Bilirubin AST ALT Alkaline Phosphatase Troponin I High Sens B-Natriuretic Peptide Total Protein Albumin Urine Color YELLOW Urine Appearance HAZY Urine pH 5.5 Ur Specific [place] 1.025 Urine Protein TRACE Urine Glucose (UA) NEG Urine Ketones 5 Urine Blood NEG Urine Nitrite NEG Ur Leukocyte Esterase NEG COVID-19 (SHRUTI) COVID-19 Clin Com Influenza Type A (GEOVANNA) Influenza Type B (GEOVANNA) Influenza A & B Note 02/24/22 02/24/22 16:44 16:44 MCV MCH MCHC RDW Plt Count MPV Immature Gran % (Auto) Neut % (Auto) Lymph % (Auto) [place] % (Auto) Eos % (Auto) Baso % (Auto) Lymph # (Auto) [place] # (Auto) Eos # (Auto) Baso # (Auto) Abs Immat Gran (auto) Absolute Neuts (auto) Absolute Nucleated RBC Nucleated RBC % (auto) Neutrophils % (Manual) Band Neutrophils % Lymphocytes % (Manual) Monocytes % (Manual) Eosinophils % (Manual) Metamyelocytes % Abs Neuts (Manual) Lymphocytes # (Manual) Monocytes # (Manual) Eosinophils # (Manual) Metamyelocytes # Toxic Vacuolation Platelet Estimate Plt Morphology Comment RBC Morphology PT 14.3 H INR 1.3 H D-Dimer High Sensitivty 344 Anion Gap Estim Creat Clear Calc Estimated GFR Random Glucose Lactic Acid Lactic Acid F/U @ 2Hr Calcium Total Bilirubin Direct Bilirubin AST ALT Alkaline Phosphatase Troponin I High Sens 4.5 B-Natriuretic Peptide Total Protein Albumin Urine Color Urine Appearance Urine pH Ur Specific [place] Urine Protein Urine Glucose (UA) Urine Ketones Urine Blood Urine Nitrite Ur Leukocyte Esterase COVID-19 (SHRUTI) COVID-19 Clin Com Influenza Type A (GEOVANNA) Influenza Type B (GEOVANNA) Influenza A & B Note Imaging Radiologist's Impressions: Impressions Chest X-Ray 02/24/22 10:01 IMPRESSION: Apparent chronic change with no active disease. Abdomen/Pelvis CT 02/24/22 15:35 IMPRESSION: 1. Focus of groundglass airspace opacity in the left lower lobe. This could reflect infectious/ inflammatory process. 2. Hepatomegaly. No focal liver lesion seen. Splenomegaly. 3. Status postcholecystectomy. 4. Mild bilateral perinephric stranding. Punctate nonobstructing calculus in the left renal upper pole calyx. No hydronephrosis. 5. Additional findings and details as above. Assessment and Plan (1) COPD with acute exacerbation: Status: Acute (2) ALKA (acute kidney injury): Status: Acute (3) Type 2 diabetes mellitus: Status: Acute Plan 76-year-old female with a past medical history of hypertension hyperlipidemia, diabetes, aortic stenosis, LVH, COPD, obesity, osteoarthritis tobacco dependence; presented to the hospital today with a chief complaint generalized weakness. Noted to have following conditions Acute COPD exacerbation: Will give the patient on nebulizers standing and p.r.n. Continue IV Solu-Medrol Supplemental oxygen p.r.n. Tobacco dependence: Counseled on smoking cessation. ALKA: Avoid nephrotoxins. Gentle IV fluids. Baseline creatinine around 0.7; creatinine on presentation was 1.6. Pneumonia: Will continue Levaquin (pharmacy to renally dosed Levaquin) ? UTI: Urinalysis negative-likely confounding given recent antibiotic use. CT scan showed perinephric stranding. Patient being covered with antibiotics as above. History of diabetes: Insulin sliding scale. Hold home insulin regimen. Hold home metformin History of hypertension: Blood pressure on soft diet. Hold home on olmesartan DVT prophylaxis: Lovenox Code status: Full code Quality Stroke Does the patient have a stroke diagnosis?: No VTE Prior VTE?: No VTE Risk Level:: Medical - moderate - high VTE Device Contraindication: Treatment Not Indicated VTE Drug Contraindication: N/A - Med Ordered
--- NOTE | 2022-02-24 20:00 | PHA.MEDREC ---
Pharmacy Consult ? Medication Reconciliation Pharmacy has completed the medication reconciliation.
[2022-02-24] MEDS: Enoxaparin Sodium 40 MG/0.4 ML SYRINGE SUBCUT (20:59)
[2022-02-24] MEDS: methylPREDNISolone Sod Succ 40 MG/ML VIAL IVPUSH (20:59)
[2022-02-24 21:05] LABS: Glucose, Whole Blood 281 mg/dL (60-115)
--- NOTE | 2022-02-24 21:13 | PC.NURSE ---
pt given a tuna sandwich and crackers
[2022-02-24] MEDS: Insulin Lispro 100 UNIT/ML 3 ML VIAL SUBCUT (21:44)
--- NOTE | 2022-02-24 23:05 | PC.NURSE ---
pt resting in recliner, with legs elevated
[2022-02-25] MEDS: 0.9 % Sodium Chloride Flush 3 ML SYRINGE IVFLUSH ×2 (00:37→08:12)
[2022-02-25] MEDS: methylPREDNISolone Sod Succ 40 MG/ML VIAL IVPUSH ×2 (03:40→13:01)
[2022-02-25 03:42] VITALS: BP 98/53; PULSE 67; RESP 15; O2SAT 95
[2022-02-25 07:01] LABS: Hemoglobin 12.9 g/dl (12.0-16.0); Mean Corpuscular HGB Conc 33.1 g/dl (31.0-35.0); Mean Corpuscular Hemoglobin 29.9 pg (27.0-33.0); Mean Corpuscular Volume 90.3 fL (80.0-98.0); Red Blood Count 4.32 X10*6/uL (4.20-5.50); Red Cell Distribution Width 13.1 % (11.0-16.0)
[2022-02-25 07:05] LABS: Glucose, Whole Blood 282 mg/dL (60-115)
[2022-02-25 07:13] LABS: Mean Platelet Volume 10.2 fL (9.4-12.3)
[2022-02-25 07:14] LABS: Anion Gap 12 (12-20); Blood Urea Nitrogen 27 mg/dL (9-16); Calcium 7.8 mg/dL (8.4-10.2); Carbon Dioxide 21 mmol/L (22-29); Chloride 105 mmol/L (96-108); Creatinine Clr Calc Pharmacy 52.2; Estimated Glomerular Filt Rate 46; Glucose Random 318 mg/dL (60-115); Potassium 3.9 mmol/L (3.3-5.1); Sodium 134 mmol/L (135-145)
[2022-02-25 07:24] VITALS: BP 105/58; PULSE 63; RESP 24; O2SAT 94
[2022-02-25 07:25] LABS: Band Neutrophils Percent 21 % (3-5); Lymphocytes Absolute Manual 0.6 X10*3/uL (1.2-4.9); Lymphocytes Percent Manual 11 % (20-40); Metamyelocytes Absolute 0.1 X10*3/uL; Metamyelocytes Percent 2 %; Monocytes Absolute Manual 0.3 X10*3/uL (0.1-1.2); Monocytes Percent Manual 5 % (2-11); Neutrophils Absolute Manual 4.1 X10*3/uL (2.0-8.3); Neutrophils Percent Manual 61 % (45-73)
[2022-02-25 07:27] LABS: Platelet Estimate DECREASED (NORMAL); Platelet Morphology Comment NORMAL; RBC Morphology NORMAL
[2022-02-25 07:28] LABS: Platelet Count 93 X10*3/uL (160-400)
[2022-02-25] MEDS: Albuterol/Iprat 2.5/0.5MG 3 ML AMPUL.NEB INHALE (08:04)
[2022-02-25 08:05] VITALS: PULSE 76; RESP 20; O2SAT 96
[2022-02-25] MEDS: Insulin Lispro 100 UNIT/ML 3 ML VIAL SUBCUT ×2 (08:11→13:01)
[2022-02-25] MEDS: 0.9 % Sodium Chloride 1,000 ML 80 ML IVCONT (08:13)
--- NOTE | 2022-02-25 08:34 | PC.NURSE ---
pt is awake and alert, has tolerated meal tray with no difficulty. pt has been ambulated at bedside and is now in a hospital bed. pt offers no complaint. pt speaking in full clear sentences with clear bronchial and vesicular ls. pt is in nsr in lead 2
--- NOTE | 2022-02-25 10:16 | PC.NURSE ---
hospitalist has evaluated, plan is for d/c
--- NOTE | 2022-02-25 11:20 | MHC.CM.PN ---
Addendum entered by Arianne Real 02/25/22 11:29: PER MD ROUNDS, PT LIKELY TO DC HOME TODAY WITH NO SERVICES. DAUGHTER WILL TRANSPORT Original Note: PT REPORTS SHE LIVES AT HOME WITH HER DAUGHTER AND IS INDEPENDENT WITH CARE PT REPORTS SHE USES A CANE PRN WHEN GOING OUT, NO OTHER DME PT HAS NO HOME OR COMMUNITY SERVICES PT DOES NOT HAVE A HCP AND DECLINES TO COMPLETE ONE TODAY PCP: ANGELY RUSSELL PT REPORTS SHE IS COVID-19 VACCINATED BUT HAS NOT RECEIVED THE BOOSTER IMM DELIVERED, COPY SENT TO [facility] CURRENT DC PLAN IS HOME WITH NO SERVICES FAMILY TO TRANSPORT
[2022-02-25 12:40] LABS: Glucose, Whole Blood 307 mg/dL (60-115)
[2022-02-25 13:25] VITALS: BP 114/66; PULSE 70; RESP 16; O2SAT 95
--- NOTE | 2022-02-25 15:35 | PM.DS ---
DS: Providers Provider Date of Service: 02/25/22 Date of admission: 02/24/22 19:08 Primary care physician: Darlin Patterson MD Consults: 02/24/22 15:05 Consult to Nephrology Stat Consulting Provider: Negro Reina Reason for consultation: new alka Has provider been notified: Yes DS: Diagnosis Discharge Diagnosis (1) COPD with acute exacerbation: Status: Acute (2) ALKA (acute kidney injury): Status: Acute (3) Type 2 diabetes mellitus: Status: Acute DS: Summary Hospital Course Hospital Course: History of presenting illness Chief Complaint: cough 76-year-old female with a past medical history of hypertension hyperlipidemia, diabetes, aortic stenosis, LVH, COPD, obesity, osteoarthritis tobacco dependence; presented to the hospital today with a chief complaint generalized weakness.? Patient reports that over the past few days she has been having generalized weakness associated and sputum production.? Also reports mild shortness of breath and wheezing.? Mentions she tried home inhalers with no significant improvement.? Patient mentioned that she was recently diagnosed with pneumonia and was on Levaquin for few days; initially felt better but later she started to feel worse again; Denies any numbness tingling or focal weakness.? Denies any recent travel or sick contacts.? Mentions that she COVID-19 vaccinated Denies any chest pain or palpitations.? Review of all other systems is negative except mentioned above ER course: Per ER team patient noted to have wheezing; given nebulizations and steroids; chest x-ray showed possible left lower lobe pneumonia; given Levaquin; EKG was nonischemic; troponin negative; also noted to have ALKA-given IV fluids but no significant improvement noted; D-dimer was noted to be 344-V/Q scan pending; CT abdomen pelvis showed mild bilateral perinephric stranding but urinalysis negative for infection; admitted for further management Hospital course 76-year-old female with a past medical history of hypertension hyperlipidemia, diabetes, aortic stenosis, LVH, COPD, obesity, osteoarthritis tobacco dependence; presented to the hospital with chief complaint of generalized weakness, mild shortness of breath and cough,recently treated with by mouth Levaquin for 8 days for pneumonia but since was feeling weak with decreased by mouth intake came to the emergency room and was admitted with a diagnosis of acute COPD exacerbation due to left base pneumonia seen on CT abdomen and pelvis that also showed mild bilateral perinephric stranding, patient denied urinary frequency, urgency, urinalysis was unremarkable Patient treated with IV Solumedrol updraft treatment, and IV antibiotics patient responded rapidly to above treatment, shortness of breath has resolved, lung examination is benign therefore she is being discharged home and has been recommended to take home inhalers, take 1 more day of Levaquin to finish total 10 day course of antibiotics, and strongly recommended to abstain from smoking patient declined nicotine patch. Her oxygenation remained stable on room air. Tobacco dependence:? Strongly advised to abstain from smoking. ALKA: Likely due to decreased by mouth intake, hypotension and continued use of Jhon inhibitor patient treated with IV fluids, renal function normalized, she has been recommended to hold antihypertensive and drink plenty of fluid. Diabetes continue metformin Hypertension noted to have low blood pressure recommend to hold olmesartan. Time Spent with Patient Time attestation: Total time spent providing and/or coordinating discharge services: Discharge coordination time: Greater than 30 minutes Quality: Safe Use of Opioids Does Pt have an Active Cancer Diagnosis on the Problem List?: No Quality: Stroke Does the patient have a stroke diagnosis?: No Physical Exam Vital Signs: Vital Signs: Last Vital Signs Temp 98.2 F 02/24/22 10:32 Pulse 70 02/25/22 13:25 Resp 16 02/25/22 13:25 BP 114/66 02/25/22 13:25 Pulse Ox 95 02/25/22 13:25 BMI result Body Mass Index 36.9 Const: Other: General awake alert x3, no acute distress. Neck no jvd CVS regular rate rhythm, Respiratory lungs clear to auscultation, no respiratory distress, no wheeze, no rhonchi. Gastrointestinal abdomen soft, nontender, bowel sounds audible Extremities no edema. Neuro nonfocal Skin no rash DS: Data Data Completed and Pending Labs on day of discharge: Laboratory Results - last 24 hr 02/24/22 02/24/22 02/24/22 09:36 16:44 16:44 WBC RBC Hgb Hct MCV MCH MCHC RDW Plt Count MPV Immature Gran % (Auto) Neut % (Auto) Lymph % (Auto) [place] % (Auto) Eos % (Auto) Baso % (Auto) Lymph # (Auto) [place] # (Auto) Eos # (Auto) Baso # (Auto) Abs Immat Gran (auto) Absolute Neuts (auto) Absolute Nucleated RBC Nucleated RBC % (auto) Neutrophils % (Manual) Band Neutrophils % Lymphocytes % (Manual) Monocytes % (Manual) Metamyelocytes % Abs Neuts (Manual) Lymphocytes # (Manual) Monocytes # (Manual) Metamyelocytes # Platelet Estimate Plt Morphology Comment RBC Morphology PT 14.3 H INR 1.3 H D-Dimer High Sensitivty 344 Sodium Potassium Chloride Carbon Dioxide Anion Gap BUN Creatinine Estim Creat Clear Calc Estimated GFR POC Glucose Random Glucose Calcium Direct Bilirubin 0.5 Troponin I High Sens 4.5 02/24/22 02/25/22 02/25/22 21:01 06:26 06:26 WBC 5.0 RBC 4.32 Hgb 12.9 Hct 39.0 MCV 90.3 MCH 29.9 MCHC 33.1 RDW 13.1 Plt Count 93 L MPV 10.2 Immature Gran % (Auto) Cancelled Neut % (Auto) Cancelled Lymph % (Auto) Cancelled [place] % (Auto) Cancelled Eos % (Auto) Cancelled Baso % (Auto) Cancelled Lymph # (Auto) Cancelled [place] # (Auto) Cancelled Eos # (Auto) Cancelled Baso # (Auto) Cancelled Abs Immat Gran (auto) Cancelled Absolute Neuts (auto) Cancelled Absolute Nucleated RBC 0.000 Nucleated RBC % (auto) 0.0 Neutrophils % (Manual) 61 Band Neutrophils % 21 H Lymphocytes % (Manual) 11 L Monocytes % (Manual) 5 Metamyelocytes % 2 Abs Neuts (Manual) 4.1 Lymphocytes # (Manual) 0.6 L Monocytes # (Manual) 0.3 Metamyelocytes # 0.1 Platelet Estimate DECREASED Plt Morphology Comment NORMAL RBC Morphology NORMAL PT INR D-Dimer High Sensitivty Sodium 134 L Potassium 3.9 Chloride 105 Carbon Dioxide 21 L Anion Gap 12 BUN 27 H Creatinine 1.15 Estim Creat Clear Calc 52.2 Estimated GFR 46 POC Glucose 281 H Random Glucose 318 H Calcium 7.8 L Direct Bilirubin Troponin I High Sens 02/25/22 02/25/22 07:00 12:36 WBC RBC Hgb Hct MCV MCH MCHC RDW Plt Count MPV Immature Gran % (Auto) Neut % (Auto) Lymph % (Auto) [place] % (Auto) Eos % (Auto) Baso % (Auto) Lymph # (Auto) [place] # (Auto) Eos # (Auto) Baso # (Auto) Abs Immat Gran (auto) Absolute Neuts (auto) Absolute Nucleated RBC Nucleated RBC % (auto) Neutrophils % (Manual) Band Neutrophils % Lymphocytes % (Manual) Monocytes % (Manual) Metamyelocytes % Abs Neuts (Manual) Lymphocytes # (Manual) Monocytes # (Manual) Metamyelocytes # Platelet Estimate Plt Morphology Comment RBC Morphology PT INR D-Dimer High Sensitivty Sodium Potassium Chloride Carbon Dioxide Anion Gap BUN Creatinine Estim Creat Clear Calc Estimated GFR POC Glucose 282 H 307 H Random Glucose Calcium Direct Bilirubin Troponin I High Sens Preliminary micro results at discharge 02/24/22 09:36 Blood Culture - Preliminary Blood - Venous No growth after 24 hours. 02/24/22 09:37 Blood Culture - Preliminary Blood - Venous No growth after 24 hours. Discharge Plan Discharge Patient Disposition: Home, Self-Care Discharge Diagnosis: Acute COPD exacerbation Left lower lobe pneumonia Acute kidney injury Referrals: Darlin Patterson MD [Primary Care Provider] - 1 Week Discharge Medications: Continued (DME) FreeStyle Lite Strips Strip See Rx Instructions .ROUTE .MEDSUPPLY Qty: 100 4RF Rx Instructions: once a day (DME) blood-glucose meter [FreeStyle Lite Meter] Kit See Rx Instructions .ROUTE .MEDSUPPLY Qty: 1 0RF Rx Instructions: As directed albuterol sulfate [ProAir HFA] 90 mcg/actuation HFA aerosol inhaler 2 puff inhalation QID PRN (Reason: shortness of breath or wheezing) Qty: 18 1RF metformin 500 mg tablet 500 mg PO BID Qty: 180 0RF (DME) blood-glucose meter Kit See Rx Instructions .ROUTE .MEDSUPPLY Qty: 1 0RF Rx Instructions: As directed Discontinued olmesartan 20 mg tablet 20 mg PO DAILY Qty: 90 3RF Discharge Orders: Discharge Order (Routine); Ordered 02/25/22 Ordered By: Cristy Murdock Diet: diabetic diet Activity on Discharge: As tolerated Stand Alone Forms: Patient Portal Discharge page Care Plan Goals: Resolving left base pneumonia take 1 more day of by mouth Levaquin 500 mg, drink fluids, take cough medication as needed, abstain from smoking stop using Olmesartan , due to low blood pressure, follow up with primary care physician and adjust dose of Olmesartan Follow diabetic diet and take metformin Use albuterol as needed for shortness of breath Health Concerns: Abstain from smoking Follow low-calorie diabetic diet Plan of Treatment: Follow-up with primary care physician in 5-7 days Assessment: As per discharge summary Patient Instructions: Acute Kidney Injury (GEN), Hyponatremia (GEN), COPD (Chronic Obstructive Pulmonary Disease) (GEN) Discharge Date/Time: 02/25/22 14:54
[2022-02-25 16:53] LABS: Glucose, Whole Blood 322 mg/dL (60-115)
== END 2022-02-25 14:54 | disposition home or self-care (01) | DRG 190 ==
LOC: HO.ED 18:52 → HO.EDOVER 19:18
PROVIDERS: Physician Assistant Medical; Admitting Provider Hospitalist; Emergency Provider Emergency Medicine; PCP Internal Medicine; Visit Provider Hospitalist
DX: J44.0 Chronic obstructive pulmonary disease with (acute) lower respiratory infection (principal); J18.9 Pneumonia, unspecified organism; N17.9 Acute kidney failure, unspecified; E87.1 Hypo-osmolality and hyponatremia; B37.0 Candidal stomatitis; F17.210 Nicotine dependence, cigarettes, uncomplicated; J44.1 Chronic obstructive pulmonary disease with (acute) exacerbation; Z71.6 Tobacco abuse counseling; I11.9 Hypertensive heart disease without heart failure; I95.9 Hypotension, unspecified; M19.90 Unspecified osteoarthritis, unspecified site; E78.5 Hyperlipidemia, unspecified; E66.9 Obesity, unspecified; Z68.37 Body mass index [BMI] 37.0-37.9, adult; Z20.822 Contact with and (suspected) exposure to COVID-19; Z79.84 Long term (current) use of oral hypoglycemic drugs; Z79.899 Other long term (current) drug therapy
CPT/HCPCS: 36415; 71046; 74176; 78580; 80048; 80053; 81003; 82248; 82947; 83605; 83880; 84484; 85007; 85025; 85027; 85379; 85610; 87040; 87502; 87635; 93005; 94640; 96361; 96365; 96375; 99284; 99291; A9540; J0696; J1650; J2920; J2930

== ENCOUNTER 2022-03-08 13:11 | Outpatient (REF) | payer MEDICARE, SELFPAY ==
[2022-03-08 14:00] LABS: Estimated Average Glucose 163 mg/dL; Hemoglobin A1c % 7.3 %
[2022-03-08 14:12] LABS: Alanine Aminotransferase 13 U/L (0-31); Albumin Level 3.6 g/dL (3.5-5.0); Alkaline Phosphatase 42 U/L (39-117); Anion Gap 13 (12-20); Aspartate Amino Transferase 16 U/L (5-31); Bilirubin Total 0.9 mg/dL (0.0-1.0); Blood Urea Nitrogen 16 mg/dL (9-16); Calcium 9.1 mg/dL (8.4-10.2); Carbon Dioxide 26 mmol/L (22-29); Chloride 104 mmol/L (96-108); Estimated Glomerular Filt Rate > 60; Glucose Random 128 mg/dL (60-115); Potassium 4.3 mmol/L (3.3-5.1); Sodium 139 mmol/L (135-145); Total Protein 6.6 g/dL (6.5-8.0)
== END 2022-03-08 13:12 | disposition home or self-care (01) ==
LOC: HO.HMGCLDS 13:11
PROVIDERS: PCP Internal Medicine; Visit Provider Internal Medicine
DX: E11.9 Type 2 diabetes mellitus without complications (principal); N17.9 Acute kidney failure, unspecified
CPT/HCPCS: 36415; 80053; 83036

== ENCOUNTER → 2022-04-29 10:25 | Outpatient (REF) | payer MEDICARE, SELFPAY ==
--- NOTE | 2022-04-29 10:28 | CA_ITS ---
Transthoracic Echocardiogram Patient (Last, First, Middle): Qing Lozada, Gender: Female Date of : 1945 Age: 76 Procedure Date: 04/29/2022 Procedure Type: Transthoracic Echocardiogram Location: OP Height: 167.64 cm Weight: 127.01 kg BSA: 2.31 m2 Heart Rate: bpm BP: 126 / 88 mmHg Oil Inspector: TO Referring MD: Geoffrey Lainez MD Symptoms: R94.31 - Abnormal electrocardiogram [ECG] [EKG] Study Quality: Technically Difficult/Contrast ECG Rhythm: Sinus Conclusions: - The left ventricular systolic function is hyperdynamic. The calculated ejection fraction is 71% by biplane method. - There is mild calcification of the aortic valve. - There is mild mitral annular calcification. Findings Procedure Information Contrast agent, definity, is being given per protocol without apparent complications. Left Ventricle Normal left ventricular cavity size. There is mildly increased left ventricular wall thickness. The left ventricular systolic function is hyperdynamic. The calculated ejection fraction is 71% by biplane method. There is no evidence of regional wall motion abnormalities. Diastolic function is normal for age. Right Ventricle Normal right ventricular cavity size and systolic function. Atria Both atria are normal in size. Aortic Valve There is a normal trileaflet aortic valve. There is mild calcification of the aortic valve. There is no aortic valve stenosis. There is no aortic valve regurgitation. Mitral Valve The mitral valve appears normal. There is mild mitral annular calcification. There is no mitral valve regurgitation. There is no mitral valve stenosis. Pulmonic Valve The pulmonic valve was not well visualized. Tricuspid Valve There is trace tricuspid valve regurgitation. The pulmonary artery systolic pressure is normal. Great Vessels The asc aorta is normal in size. Venous The inferior vena cava is normal in size and collapses greater than 50% with inspiration. Pericardium/Pleural There is no evidence of pericardial effusion. Prior Study Comparison No significant change compared to prior study dated: 10/19/2015. Measurements 2D Linear Measurements IVSd: 1.32 0.6-0.9/0.6-1.0 cm LVIDd: 4.19 3.9-5.3/4.2-5.9 cm LVIDd Index: 1.81 2.4-3.2/2.2-3.1 cm/m2 LVIDs: 2.71 2.0-3.6 cm LVPWd: 1.25 0.7-1.1 cm LA Diam: 4.00 2.7-3.8/3.0-4.0 cm LAIDs Index: 1.73 1.5-2.3 cm/m2 LV Mass: 244.77 67-162/88-224 g LV Mass Index: 105.96 43-95/49-115 g/m2 LVOT Diam: 2.10 3.0+(-)1.3 cm 2D Systolic Function EF 4C: 65.60 >55% EF 2C: 75.70 >55% EF BiP: 70.90 >55% Mitral Valve MV VTI: 0.38 MV Pk Nikhil: 1.45 MV Mn Nikhil: 0.86 MV Pk Grad: 8.00 MV Mn Grad: 3.00 MV Pk E: 0.89 MV PK A: 1.25 MV Decel Time: 262.00 E/A: 0.70 E'Lateral: 7.29 E'Medial: 4.57 E/E' Med: 19.50 E/E' Lat: 12.20 PHT: 77.00 MVA PHT: 2.86 MVA Continuity: 2.05 Decel Mccone: 3.40 Aortic Valve AoV Pk Nikhil: 1.49 AoV Mn Nikhil: 1.05 AoV VTI: 0.33 AoV Pk Grad: 9.00 Aov Mn Grad: 5.00 KALI Cont.VTI: 2.36 LVOT LVOT Pk Nikhil: 1.02 LVOT Mn Nikhil: 0.64 LVOT VTI: 0.22 LVOT Pk Grad: 4.00 LVOT Mn Grad: 2.00 LVOT Diam: 2.10 LVOT Area: 3.46 Diastolic Function MV Pk E: 0.89 MV Pk A: 1.25 E/A: 0.70 E'Medial: 4.57 E/E' Med: 19.50 E' Laterial: 7.29 E/E' Lat: 12.20 Right Ventricle TAPSE (mm): 26.70 TVS' Nikhil: 11.00 Tricuspid Valve TR Pk Nikhil: 2.35 TR Pk Grad: 22.00 RA Press: 3.00 RVSP: 25.00 Great Vessels Aorta Sinus of Valsalva: 3.38 2.0-3.[address] [place]: 2.59 1.7-3.4 cm Ao Asc: 3.50 2.1-3.4 cm Updated in Other Vendor System with Status of Final Trung Patel MD electronically signed on 05/01/2022 11:17:49 AM with status of Final
== END ==
LOC: HO.CARD 10:25
PROVIDERS: PCP Internal Medicine; Visit Provider Internal Medicine
DX: R94.31 Abnormal electrocardiogram [ECG] [EKG] (principal)
CPT/HCPCS: 93306; Q9957

== ENCOUNTER → 2022-06-02 14:34 | Outpatient (BNVA) | payer MEDICARE, SELFPAY | PROVIDERS: PCP Internal Medicine; Referring Provider Internal Medicine; Visit Provider Internal Medicine Cardiovascular Disease | DX: Z01.810 Encounter for preprocedural cardiovascular examination (principal); R94.31 Abnormal electrocardiogram [ECG] [EKG] | CPT/HCPCS: 99202 ==

== ENCOUNTER 2023-06-02 07:07 | Outpatient (REF) | payer MEDICARE, SELFPAY ==
[2023-06-02 11:51] LABS: Estimated Average Glucose 123 mg/dL; Hemoglobin A1c % 5.9 % (<6.0)
[2023-06-02 12:21] LABS: Creatinine Urine 85.99 mg/dL; Microalbum/Creatinine Ratio Ur 5.8 ug/mg cr (<30)
[2023-06-02 12:27] LABS: Alanine Aminotransferase 12 U/L (0-31); Albumin Level 3.9 g/dL (3.5-5.0); Alkaline Phosphatase 45 U/L (39-117); Anion Gap 15 (12-20); Aspartate Amino Transferase 17 U/L (5-31); Bilirubin Total 0.8 mg/dL (0.0-1.0); Blood Urea Nitrogen 23 mg/dL (9-16); Calcium 9.8 mg/dL (8.4-10.2); Carbon Dioxide 24 mmol/L (22-29); Chloride 106 mmol/L (96-108); Cholesterol 182 mg/dL (<200); Estimated Glomerular Filt Rate > 60; Glucose Fasting 146 mg/dL (60-99); HDL Cholesterol 45 mg/dL (>40); LDL Cholesterol Calculated 113 mg/dL (<100); Potassium 4.3 mmol/L (3.3-5.1); Sodium 141 mmol/L (135-145); TSH reflex Free T4 3.52 uIU/mL (0.32-4.0); Total Protein 6.9 g/dL (6.5-8.0); Triglycerides 122 mg/dL (<150)
== END 2023-06-02 07:08 | disposition home or self-care (01) ==
LOC: HO.HMGCLDS 07:07
PROVIDERS: PCP Internal Medicine; Visit Provider Internal Medicine
DX: E11.9 Type 2 diabetes mellitus without complications (principal); E66.9 Obesity, unspecified; I10 Essential (primary) hypertension; J44.9 Chronic obstructive pulmonary disease, unspecified; F17.200 Nicotine dependence, unspecified, uncomplicated
CPT/HCPCS: 36415; 80053; 80061; 82043; 82570; 83036; 84443